=== PATIENT | female | born 2000 | race Caucasian/White ===

== ENCOUNTER → 2022-09-21 | Outpatient (CLI) | payer BC ==
--- NOTE | 2022-09-21 13:48 | Diagnostic Imaging Report ---
INDICATION: Trauma with pain to right hand. EXAMINATION: Right hand, 3 views. FINDINGS: The carpal bones are in good alignment without subluxation. No findings to suggest fracture. No evidence of osteonecrosis. The radiocarpal joint appears normal. IMPRESSION: Normal right wrist. Dictated by: Dictated on workstation # [id number]
== END ==
LOC: RAD 08:48
PROVIDERS: ATTEND Nurse Practitioner Family
DX: S69.91XA Unspecified injury of right wrist, hand and finger(s), initial encounter (principal); X58.XXXA Exposure to other specified factors, initial encounter
CPT/HCPCS: 73130